=== PATIENT | female | born 1990 | race African-American/Black ===

== ENCOUNTER 2016-11-22 07:59 | Day surgery (SDC) | payer OTHER ==
[~2016-11-22 07:59] MED LIST: IV START KIT ONE; LACTATED RINGERS 1,000 ML IV SCH; LACTATED RINGERS 1,000 ML ONE
[2016-11-22] MEDS ORDERED: PROPOFOL 20 ML IV ONE (08:50)
[2016-11-22] MEDS ORDERED: PROPOFOL 40 ML IV ONE (09:09)
[2016-11-22 13:37] LABS: HELICOBACTER PYLORII DETECTION NEGATIVE (NEGATIVE)
== END 2016-11-22 10:32 | disposition home or self-care (01) ==
LOC: SDC 07:59
PROVIDERS: ATTEND Internal Medicine Gastroenterology
PROC: 0DB68ZX Excision of Stomach, Via Natural or Artificial Opening Endoscopic, Diagnostic (ICD-10-PCS; principal; 2016-11-22)
PROC: 0DB98ZX Excision of Duodenum, Via Natural or Artificial Opening Endoscopic, Diagnostic (ICD-10-PCS; 2016-11-22)
PROC: 0DBB8ZX Excision of Ileum, Via Natural or Artificial Opening Endoscopic, Diagnostic (ICD-10-PCS; 2016-11-22)
PROC: 0DBN8ZX Excision of Sigmoid Colon, Via Natural or Artificial Opening Endoscopic, Diagnostic (ICD-10-PCS; 2016-11-22)
PROC: 0DBH8ZX Excision of Cecum, Via Natural or Artificial Opening Endoscopic, Diagnostic (ICD-10-PCS; 2016-11-22)
DX: K29.70 Gastritis, unspecified, without bleeding (principal); K29.80 Duodenitis without bleeding; K64.1 Second degree hemorrhoids; K59.8 Other specified functional intestinal disorders; F41.9 Anxiety disorder, unspecified; Z87.891 Personal history of nicotine dependence; Z88.6 Allergy status to analgesic agent; G47.00 Insomnia, unspecified
CPT/HCPCS: 87081; 43239; 45380; J7120